=== PATIENT | female | born 1935 | race Caucasian/White ===

== ENCOUNTER 2016-07-23 12:10 | Emergency (ER) | payer MEDICARE ==
[2015-11-02 13:17] VITALS: BMI 18.3
[~2016-07-23 12:10] MED LIST: ALDACTONE25 MG PO; CELEXA40 MG PO; CYCLOBENZAPRINE10 MG PO; FLORANEX / LACT1 TAB PO; K-DUR20 MEQ PO; LASIX20 MG PO; MELATONIN 3 MG1 TAB PO; MIRALAX17 GM PO; NAMENDA XR28 MG PO; NAMENDA10 MG PO; PEPCID40 MG PO; PERCOCET 10/3251 TA1 PO; PROVENTIL HFA6.7 GM INH; VALIUM10 MG PO
[2016-07-23 12:46] LABS: BASOPHILS 0.4 % (0-2); EOSINOPHILS 1.5 % (0-7); HEMATOCRIT 37.4 % (36.0-48.0); HEMOGLOBIN 12.4 g/dL (12-16); IMMATURE GRANULOCYTES 0.2 % (0-5); LYMPHOCYTES 37.8 % (15-50); MCH 31.1 pg (26.0-34.0); MCHC 33.2 g/dL (31.0-37.0); MCV 93.7 fL (80.0-100.0); MEAN PLATELET VOLUME 9.2 fL (7.4-10.4); MONOCYTES 6.7 % (2-11); NEUTROPHILS 53.4 % (40-80); RBC 3.99 10x6/uL (4.00-5.40); RDW 13.7 % (11.5-14.5); WBC 5.4 10x3/uL (4.8-10.8)
[2016-07-23 12:59] LABS: ALBUMIN 3.4 g/dL (3.4-5.0); ANION GAP 11.6 mmol/L (8-16); BILIRUBIN - TOTAL 0.5 mg/dL (0.2-1.3); CALCIUM 9.1 mg/dL (8.5-10.1); CARBON DIOXIDE 25.2 mmol/L (21.0-32.0); POTASSIUM - SERUM 3.8 mmol/L (3.5-5.1); PROTEIN - SERUM 6.9 g/dL (6.4-8.2)
[2016-07-23 13:11] LABS: PLATELET COUNT 203 10x3/uL (130-400)
[2016-07-23 14:14] LABS: UDS - AMPHET NEGATIVE QUAL (NEGATIVE); UDS - BARB NEGATIVE QUAL (NEGATIVE); UDS - BENZO NEGATIVE QUAL (NEGATIVE); UDS - COCAINE NEGATIVE QUAL (NEGATIVE); UDS - METH NEGATIVE QUAL (NEGATIVE); UDS - OPIATE NEGATIVE QUAL (NEGATIVE); UDS - PCP NEGATIVE QUAL (NEGATIVE); UDS - THC NEGATIVE QUAL (NEGATIVE)
[2016-07-23 14:56] LABS: APPEARANCE HAZY (CLEAR); BACTERIA MODERATE /hpf (NONE SEEN); BILIRUBIN NEGATIVE (NEGATIVE); COLOR YELLOW (YELLOW); EPITHELIAL CELLS OCC /hpf (0-5); GLUCOSE NEGATIVE (NEGATIVE); HYALINE CAST NONE SEEN /lpf (NONE SEEN); KETONE NEGATIVE (NEGATIVE); LEUKOCYTE ESTERASE 1+ (NEGATIVE); MUCUS NONE SEEN /lpf (NONE SEEN); NITRITE NEGATIVE (NEGATIVE); PROTEIN NEGATIVE (NEGATIVE); RED CELLS - URINE OCC /hpf (0-5); SPECIFIC GRAVITY 1.015 (1.005-1.020); SPERMATOZOA NONE SEEN /hpf (NONE SEEN); UROBILINOGEN NORMAL (NORMAL); WHITE CELLS - URINE 0-5 /hpf (0-5); YEAST NONE SEEN /hpf (NONE SEEN)
[2016-07-23 14:57] LABS: AMORPHOUS SEDIMENT <1+ /lpf (NONE SEEN); GRANULAR CAST NONE SEEN /lpf (NONE SEEN); RED CELL CAST NONE SEEN /lpf (NONE SEEN); WAXY CAST NONE SEEN /lpf (NONE SEEN)
== END 2016-07-23 16:24 | disposition home or self-care (01) ==
LOC: D.ER 12:10
PROVIDERS: Emergency Medicine; Physician Assistant
DX: M54.12 Radiculopathy, cervical region (principal); M54.2 Cervicalgia; R53.1 Weakness; G30.9 Alzheimer's disease, unspecified; F02.80 Dementia in other diseases classified elsewhere, unspecified severity, without behavioral disturbance, psychotic disturbance, mood disturbance, and anxiety; K57.90 Diverticulosis of intestine, part unspecified, without perforation or abscess without bleeding

== ENCOUNTER 2016-09-18 15:47 | Emergency (ER) | payer MEDICARE ==
[2015-11-02 13:17] VITALS: BMI 18.3
== END 2016-09-18 18:40 | disposition home or self-care (01) ==
LOC: D.ER 15:47
DX: S39.012A Strain of muscle, fascia and tendon of lower back, initial encounter (principal); W19.XXXA Unspecified fall, initial encounter; Y93.89 Activity, other specified; Y92.89 Other specified places as the place of occurrence of the external cause

== ENCOUNTER 2017-01-14 02:20 | Observation (INO) | payer MEDICARE ==
[~2017-01-14] VITALS: Ht 165.1 cm; Wt 61.2 kg
[2017-01-14 03:02] LABS: APPEARANCE HAZY (CLEAR); BILIRUBIN NEGATIVE (NEGATIVE); COLOR YELLOW (YELLOW); GLUCOSE NEGATIVE (NEGATIVE); KETONE NEGATIVE (NEGATIVE); NITRITE NEGATIVE (NEGATIVE); PROTEIN TRACE mg/dL (NEGATIVE); UROBILINOGEN NORMAL (NORMAL)
[2017-01-14 03:05] LABS: BACTERIA MODERATE /hpf (NONE SEEN); EPITHELIAL CELLS 0-5 /hpf (0-5); RED CELLS - URINE 0-5 /hpf (0-5)
[2017-01-14 03:19] LABS: BASOPHILS 0.2 % (0-2); EOSINOPHILS 0.5 % (0-7); HEMATOCRIT 35.2 % (36.0-48.0); HEMOGLOBIN 11.7 g/dL (12-16); IMMATURE GRANULOCYTES 0.2 % (0-5); LYMPHOCYTES 16.8 % (15-50); MCH 30.9 pg (26.0-34.0); MCHC 33.2 g/dL (31.0-37.0); MCV 92.9 fL (80.0-100.0); MEAN PLATELET VOLUME 8.9 fL (7.4-10.4); MONOCYTES 7.7 % (2-11); NEUTROPHILS 74.6 % (40-80); RBC 3.79 10x6/uL (4.00-5.40); RDW 13.5 % (11.5-14.5); WBC 10.2 10x3/uL (4.8-10.8)
[2017-01-14 03:20] LABS: UDS - AMPHET NEGATIVE QUAL (NEGATIVE); UDS - BARB NEGATIVE QUAL (NEGATIVE); UDS - BENZO NEGATIVE QUAL (NEGATIVE); UDS - COCAINE NEGATIVE QUAL (NEGATIVE); UDS - OPIATE NEGATIVE QUAL (NEGATIVE); UDS - PCP NEGATIVE QUAL (NEGATIVE); UDS - THC NEGATIVE QUAL (NEGATIVE)
[2017-01-14 03:21] LABS: PLATELET COUNT 251 10x3/uL (130-400)
[2017-01-14 03:30] LABS: ALBUMIN 3.3 g/dL (3.4-5.0); ALKALINE PHOSPHATASE 93 U/L (46-116); ALT (SGPT) 16 U/L (10-68); BILIRUBIN - TOTAL 0.36 mg/dL (0.2-1.3); CALC OSMOLALITY 282 mosm/kg (275-300); CALCIUM 8.8 mg/dL (8.5-10.1); CARBON DIOXIDE 24.9 mmol/L (21.0-32.0); CHLORIDE - SERUM 107 mmol/L (98-107); CREATININE - SERUM 0.8 mg/dL (0.6-1.3); GLUCOSE 108 mg/dL (74-106); POTASSIUM - SERUM 3.5 mmol/L (3.5-5.1); PROTEIN - SERUM 6.9 g/dL (6.4-8.2); SODIUM 141 mmol/L (136-145); UREA NITROGEN 15 mg/dL (7-18); eGFR NON AFRICAN AMERICAN 73 mL/min (90-120)
[2017-01-14 03:39] LABS: CREATINE KINASE 125 UL (21-215); PRO BNP 145 pg/mL (0-450); THYROID STIMULATING HORMONE 1.67 uIU/mL (0.36-3.74)
[2017-01-14 03:40] LABS: C-REACTIVE PROTEIN < 0.2 mg/dL (0.0-0.9); TROPONIN-I < 0.017 ng/mL (0.000-0.060)
--- NOTE | 2017-01-14 07:30 | NUR ---
RESTING QUIETLY IN BED. GRISEL ALARM IN USE.
[2017-01-14 08:40] VITALS: BP 103/48
[2017-01-14 10:00] VITALS: BP 103/43; BMI 22.5
--- NOTE | 2017-01-14 10:00 | NUR ---
ADMIT ASSESSMENT COMPLETED. CHANELLE TO [facility] FA. ORIENTED TO SELF ONLY. STATES SHE DOESN'T KNOW WHERE SHE IS AT THIS TIME. GRISEL ALARM IN USE. FREQUENTLY TRYING TO GET OUT OF BED TO GO TO BATHROOM. GAIT UNSTEADY.
--- NOTE | 2017-01-14 10:11 | NUR ---
Patient Name: TAHIR ARTHUR Admission Status: ER Accout number: [id number] Admission Date: 01-14-2017 : 1935 Admission Diagnosis: Attending: RUFINO, Current LOS: 1 Anticipated DC Date: 01-17-2017 Planned Disposition: Home with Home Health Primary Insurance: [employer] PPO [facility] Discharge Planning Comments: CM CALLED PATIENTS SON (APPLE) AND HE STATED SHE LIVES WITH HIM AND HIS AND HE WILL DRIVE HER HOME AT DISCHARGE. PATIENT HAS A RAMP TO ENTER HOME AND THERE ARE NO STAIRS INSIDE. PATIENT NEEDS ASSISTANCE WITH BATH, DRESSING, AND MEDS. PATIENT HAS BEEN WALKING PER SON. PATIENT HAS A WALKER, WHEELCHAIR, SHOWER CHAIR, BS COMMODE, AND CANE AT HOME. PATIENTS FAMILY REQUESTED [facility] AT DISCHARGE. PATIENT DOES NOT HAVE A PCP AND USES [facility] FOR HER PHARMACY. CM WILL CONTINUE TO FOLLOW PATIENT WITH D/C NEEDS AND PLANS. PCP [facility] [place] [id number] APPLE (SON) [phone] [employer] Machine Operator: Peggy Lin Is the patient Alert and Oriented? No 0 * How many steps to enter\exit or inside your home? RAMP 0 * PCP NONE 0 * Pharmacy [facility] 0 * Preadmission Environment Home with Family 0 * ADLs Partial Dependent 0 * Partial ADLs (Assistance needed) Ambulation Bathing Dressing Medication Management Toileting Transfers 0 * Equipment Bedside Commode Cane Shower Chair Walker Wheelchair 0 * List name and contact numbers for known caregivers / representatives who currently or will assist patient after discharge: APPLE ARTHUR (SON) [phone] 0 * Community resources currently utilized None 0 * Additional services required to return to the preadmission environment? Yes 0 * Can the patient safely return to the preadmission environment? Yes 0 * Has this patient been hospitalized within the prior 30 days at any hospital? No 0 Grand Total: 0
--- NOTE | 2017-01-14 12:00 | NUR ---
LAYING QUIETLY IN BED AT THIS TIME. NO CHANGES NOTED AT THIS TIME.
[2017-01-14 12:45] VITALS: BP 120/55
[2017-01-14 13:54] VITALS: Ht 165.1 cm; Wt 61.2 kg
[2017-01-14] MEDS ORDERED: HYDROCODON-ACE1 EAC7 PO (14:48)
--- NOTE | 2017-01-14 15:45 | NUR ---
SL REMOVED. CATHETER TIP INTACT. WILL DC HOME WHEN RIDE AVAILABLE FROM FAMILY.
--- NOTE | 2017-01-14 16:00 | NUR ---
DC'D HOME WITH NIECE. VERBAL DISCHARGE INSTRUCTIONS GIVEN TO NIECE DUE TO PATIENT'S ORIENTATION AND FAMILY NOT WANTING TO COME INTO HOSPITAL. SCRIPT FOR [facility] SENT WITH PATIENT WITH DISCHARGE INSTRUCTIONS.
== END 2017-01-14 16:00 | disposition home health service (06) ==
LOC: D.ER 02:20 → D.MS 04:57 → D.ER 04:57 → OBSVTIME 04:57 → D.MS 04:57
PROVIDERS: Family Medicine; ADMIT Family Medicine
DX: M54.5 Low back pain (principal); F03.90 Unspecified dementia, unspecified severity, without behavioral disturbance, psychotic disturbance, mood disturbance, and anxiety; R53.1 Weakness; E86.0 Dehydration

== ENCOUNTER 2019-12-04 13:01 | Emergency (ER) | payer MEDICARE ==
[~2019-12-04] VITALS: Ht 165.1 cm; Wt 56.8 kg
[~2019-12-04 13:01] MED LIST changes: +HYDROCODON-ACE1 EAC7 PO
[2019-12-04 13:04] VITALS: Ht 165.1 cm; Wt 56.8 kg
[2019-12-04 13:47] LABS: BASOPHILS 0.4 % (0-2); EOSINOPHILS 0.7 % (0-7); HEMATOCRIT 35.8 % (36.0-48.0); HEMOGLOBIN 11.2 g/dL (12-16); IMMATURE GRANULOCYTES 0.1 % (0-5); LYMPHOCYTES 22.5 % (15-50); MCH 29.2 pg (26.0-34.0); MCHC 31.3 g/dL (31.0-37.0); MCV 93.5 fL (80.0-100.0); MEAN PLATELET VOLUME 8.8 fL (7.4-10.4); MONOCYTES 6.5 % (2-11); NEUTROPHILS 69.8 % (40-80); RBC 3.83 10x6/uL (4.00-5.40); RDW 14.5 % (11.5-14.5); WBC 8.5 10x3/uL (4.8-10.8)
[2019-12-04 13:52] LABS: PLATELET COUNT 308 10x3/uL (130-400)
[2019-12-04 13:55] LABS: APTT 28.1 SECONDS (22.8-39.4); INR 0.97 (0.85-1.17); PROTIME 12.9 SECONDS (11.6-15.0)
[2019-12-04 13:59] LABS: CALC OSMOLALITY 288 mosm/kg (275-300); CALCIUM 9.3 mg/dL (8.5-10.1); CARBON DIOXIDE 30.5 mmol/L (21.0-32.0); CHLORIDE - SERUM 103 mmol/L (98-107); CREATININE - SERUM 1.2 mg/dL (0.6-1.3); GLUCOSE 105 mg/dL (74-106); POTASSIUM - SERUM 4.3 mmol/L (3.5-5.1); SODIUM 142 mmol/L (136-145); UREA NITROGEN 30 mg/dL (7-18); eGFR NON AFRICAN AMERICAN 45 mL/min (90-120)
[2019-12-04 14:15] LABS: ALBUMIN 3.3 g/dL (3.4-5.0); ALKALINE PHOSPHATASE 122 U/L (30-120); ALT (SGPT) 18 U/L (10-68); BILIRUBIN - TOTAL 0.42 mg/dL (0.2-1.3); CKMB 1.6 U/L (0.0-3.6); CREATINE KINASE 59 UL (21-215); PROTEIN - SERUM 7.4 g/dL (6.4-8.2)
[2019-12-04 14:16] LABS: TROPONIN-I < 0.017 ng/mL (0.000-0.060)
[2019-12-04 16:39] LABS: BACTERIA MODERATE HPF (NONE SEEN); BILIRUBIN NEGATIVE (NEGATIVE); KETONE NEGATIVE (NEGATIVE); NITRITE NEGATIVE (NEGATIVE); UROBILINOGEN NORMAL mg/dL (< 2); WHITE CELLS - URINE 0-5 HPF (0-4)
[2019-12-04] MEDS ORDERED: KEFLEX500 MG PO (17:06)
[2019-12-04] MEDS ORDERED: MACROBID100 MG PO (17:06)
[2019-12-04 18:51] VITALS: BP 98/62
== END 2019-12-04 18:53 ==
LOC: D.ER 13:01
PROVIDERS: Family Medicine
DX: M25.552 Pain in left hip (principal); F03.90 Unspecified dementia, unspecified severity, without behavioral disturbance, psychotic disturbance, mood disturbance, and anxiety; N39.0 Urinary tract infection, site not specified; W19.XXXA Unspecified fall, initial encounter; Y93.9 Activity, unspecified; Y92.9 Unspecified place or not applicable